=== PATIENT | female | born 1940 | race Caucasian/White ===

== ENCOUNTER → 2016-12-03 | Outpatient (CLI) | payer OTHER | LOC: CIMAGING 09:43 | DX: Z12.31 Encounter for screening mammogram for malignant neoplasm of breast (principal); Z80.3 Family history of malignant neoplasm of breast | CPT/HCPCS: G0202 ==

== ENCOUNTER 2016-12-14 09:15 | Inpatient (IN) | payer OTHER ==
--- NOTE | 2016-12-06 15:14 | GHP ---
[f rep st] PREOP HISTORY AND PHYSICAL DATE OF ADMISSION: 12/14/2016 She will be an a.m. admission for surgery on December 14, 2016. PROBLEM: Right hip arthritis. HISTORY OF PRESENT ILLNESS: The patient is a 76-year-old woman admitted for a right total hip arthr oplasty. She has had progressive pain in her right hip for the past couple of years. It started wi th groin pain. She has had rapid acceleration of her pain recently. She is having daily pain and n ight pain. Walking is painful. She is limping. Her activities are very limited. She has been usi ng Tylenol. She has trouble putting on her shoes and socks. She has not had any previous cortisone injections. PAST MEDICAL HISTORY: She is treated for elevated cholesterol. She is also treated for hypothyroid ism. She has had recent endoscopy and had some stomach acid erosions. She has had a previous open heart surgery for mitral valve and tricuspid valve reconstructions. No history of DVT, hepatitis, o r sleep apnea. CURRENT MEDICATIONS: Atorvastatin 10 mg per day, levothyroxine 50 mcg per day, metoprolol 25 mg per day, Prilosec daily, one baby aspirin per day. ALLERGIES: Drug allergies: None. Metal allergy: None. Latex allergy: None. SOCIAL HISTORY: The patient does not smoke cigarettes or drink alcohol. She is retired. She is ma rried. FAMILY HISTORY: Positive for high blood pressure and cancer. PHYSICAL EXAMINATION: GENERAL: She is an alert, healthy-appearing woman. VITAL SIGNS: Height 5 f eet 6 inches. Weight 160 pounds. BMI 25.8. HEENT: Eyes, conjunctivae and sclerae are clear. Pup ils are round and reactive. Mouth, good oral hygiene. No loose teeth. CHEST: Clear. HEART: Reg ular rhythm. No murmurs. EXTREMITIES: Pertinent findings are limited to her right hip. She has f ull hip extension, 100 degrees of flexion. External rotation 20 degrees. Internal rotation 0 degre es. Abduction 30 degrees. She has pain at the extremes of motion. IMAGING: Films from November 08, 2016, show severe degenerative arthritis of the right hip. She is [id number]. Peripheral osteophytes are present. She has mild cartilage space narrowing in her l eft hip. IMPRESSION ON ADMISSION: 1. Right hip advanced degenerative arthritis. She is prepared for a right total hip arthroplasty. 2. Treatment for elevated cholesterol. 3. Treatment for hypothyroidism. 4. Treatment for stomach acid problems. 5. Status post open heart surgery for mitral and tricuspid valve reconstruction. She will undergo a right total hip arthroplasty. The surgery has been described to her including th e risks, complications, expectations, and recovery time. I have discussed with her the risk of disl ocation, leg length inequality, infection, and sciatic nerve injury. All her questions have been an swered, and she consents to surgery. /[id number]/MODL
[2016-12-06 15:35] LABS: % IMMATURE GRANULYOCYTES 0.1 % (0.0-1.1); ABSOLUTE IMMATURE GRANULOCYTES 0.01 10^3/uL (0.00-0.10); ADD DIFF? NO; ADD MORPH? NO; ADD SCAN? NO; ATYPICAL LYMPHOCYTE FLAG 10 (0-99); FRAGMENT RBC FLAG 0 (0-99); HEMATOCRIT 39.8 % (38.0-47.0); HEMOGLOBIN 13.1 g/dL (12.6-16.3); LEFT SHIFT FLG 0 (0-99); LIPEMIA HEMOLYSIS FLAG 80 (0-99); MEAN CELL HEMOGLOBIN 30.6 pg (27.9-34.1); MEAN CELL HEMOGLOBIN CONCENTR. 32.9 g/dL (32.4-36.7); MEAN PLATELET VOLUME 9.5 fL (8.7-11.7); PLATELET CLUMPS FLAG 0 (0-99); PLATELET COUNT 274 10^3/uL (150-400); RED BLOOD CELL COUNT 4.28 10^6/uL (4.18-5.33); RED CELL DISTRIBUTION WIDTH 13.1 % (11.5-15.2)
[~2016-12-14 09:15] MED LIST: ACETAMINOPHEN 325 MG TAB PO ONE; CEFAZOLIN 2 GM/DEXTR 100 ML IV ONE; CHLORHEXIDINE GLUC HIBICLENS 118 ML BTL TP ONE; DEXAMETHASONE 4 MG/ML VIAL IVP ONE; FAMOTIDINE 20 MG TAB PO ONE; POVIDONE-IODINE 20 ML in SODIUM CL IRRIG SOLUTION 500 ML IRR ONE; ROPI/epiNEPH/KETOROLAC JOINT COCKTAIL IU ONE; SKIN ADHESIVE (DERMABOND) 1 EACH TP ONE; TRANEXAMIC ACID 1,400 MG in NS 100 ML IV ONE; ceFAZolin 1 GM/5 ML SYR ONE
[2016-12-14] MEDS ORDERED: FAMOTIDINE 20 MG TAB ONE (10:17)
[2016-12-14] MEDS ORDERED: DEXAMETHASONE 4 MG/ML VIAL ONE (10:17)
[2016-12-14] MEDS ORDERED: CEFAZOLIN 2 GM/DEXTROSE/100 ML BAG IV ONE (10:18)
[2016-12-14] MEDS ORDERED: ACETAMINOPHEN 325 MG TAB ONE (10:18)
[2016-12-14] MEDS ORDERED: LR 1,000 ML IV ONE (10:49)
[2016-12-14] MEDS ORDERED: MIDAZOLAM 2 MG/2 ML VIAL ONE (12:50)
[2016-12-14] MEDS ORDERED: PROPOFOL/EMULSION 500 MG/50 ML BOTTLE IV ONE ×3 (12:56→16:36)
[2016-12-14] MEDS ORDERED: epHEDrine SULFATE 10 MG/ML SYR ONE ×2 (14:11→16:01)
--- NOTE | 2016-12-14 14:44 | POSTOPPROG ---
Post Op Note Date of Operation: 12/14/16 Surgeon: Virgilio Juarez Supervisor Coffee: Lenka Anesthesiologist: Scarlett Anesthesia: IV Sedation, Spinal Post-op Diagnosis: R hip arthritis Procedure: R JORDAN Inf/Abcess present in the surg proc area at time of surgery?: No EBL: 100-500
[2016-12-14] MEDS ORDERED: PROMETHAZINE HCL 25 MG SUPPR PR PRN (14:53)
[2016-12-14] MEDS ORDERED: ONDANSETRON DISINTEGRATING 4 MG TAB PO PRN (14:53)
[2016-12-14] MEDS ORDERED: BISACODYL 10 MG SUPP PR PRN (14:53)
[2016-12-14] MEDS ORDERED: METOCLOPRAMIDE 10 MG/2 ML VIAL IVP PRN (14:53)
[2016-12-14] MEDS ORDERED: NS 500 ML IV PRN (14:53)
[2016-12-14] MEDS ORDERED: MAGNESIUM HYDROXIDE 30 ML UDCUP PO PRN (14:53)
[2016-12-14] MEDS ORDERED: DIPHENOXYLATE/ATROPINE LOMOTIL 1 TAB PO PRN (14:53)
[2016-12-14] MEDS ORDERED: oxyCODONE IR 5 MG TAB PO PRN (14:53)
[2016-12-14] MEDS ORDERED: PHARMACY PAIN CONSULT 1 EA MISC PRN (14:53)
[2016-12-14] MEDS ORDERED: diphenhydrAMINE 25 MG CAP PO PRN (14:53)
[2016-12-14] MEDS ORDERED: POLYETHYLENE GLYCOL 3350 17 GM PKT PO PRN (14:53)
[2016-12-14] MEDS ORDERED: KETOROLAC 30 MG/1 ML SDV IVP PRN (14:53)
[2016-12-14] MEDS ORDERED: ONDANSETRON 4 MG/2 ML VIAL IVP PRN (14:53)
[2016-12-14] MEDS ORDERED: LACTULOSE 20 GM/30 ML UDCUP PO PRN (14:53)
[2016-12-14] MEDS ORDERED: traMADol 50 MG TAB PO PRN (14:53)
[2016-12-14] MEDS ORDERED: TEMAZEPAM 15 MG CAP PO PRN (14:53)
[2016-12-14] MEDS ORDERED: CYCLOBENZAPRINE 10 MG TAB PO PRN (14:53)
[2016-12-14] MEDS ORDERED: LR 1,000 ML IV SCH (15:00)
--- NOTE | 2016-12-14 15:48 | GOP ---
[f rep st] OPERATIVE REPORT DATE OF OPERATION: 12/14/2016 SURGEON: Virgilio Juarez MD SUBWAREHOUSE SUPERVISOR: 1. Peter Daley, PAC. 2. Trell Joshua CFA. ANESTHESIA: Combination of Marcaine spinal and IV sedation by Dr. Rajesh Pantoja. PREOPERATIVE DIAGNOSIS: Right hip severe degenerative arthritis. POSTOPERATIVE DIAGNOSIS: Right hip severe degenerative arthritis. PROCEDURE PERFORMED: A right total hip arthroplasty, ceramic femoral head on highly cross-linked po lyethylene cup liner. FINDINGS: DESCRIPTION OF PROCEDURE: The patient was given 2 g of IV Ancef preoperatively within 60 minutes of surgery. She also received IV tranexamic acid at a dose of 20 mg/kg. She was placed on the operat ing room table and given spinal anesthesia with Marcaine by Dr. Pantoja. She was then placed supine a nd given IV sedation. A Espinoza catheter was not used. She wore a SHAE stocking and an SCD on the non operative leg. She was rolled to the right lateral decubitus position. The position was secured wi th the pegboard table attachment. An axillary roll was used, and all pressure points were carefully padded. I was careful to lock her pelvis in a rigid vertical position. Her perineum was isolated with plastic adhesive drapes. Her right hip and right lower extremity were prepped with ChloraPrep. They were draped free using sterile sheets, stockinette, and Ioban plastic drapes. The [facility] th Organization time-out was performed to verify the correct surgical side and the correct patient i dentity. The [place] time-out was also performed. I made a 4 to 5-inch straight oblique posterolateral hip skin incision. I was using the modified sterior superior approach. I made my incision a little more proximal than typical. The subcutaneou s tissues were sharply divided and hemostasis was obtained using electrocautery. The fascia of the gluteus stephanie was split. I split a short section of the proximal fascia riley. The gluteus maximu s muscle fibers were split in line with their orientation. A Charnley self-retaining retractor was inserted. Her sciatic nerve was located, partially exposed and protected throughout the procedure. I left the piriformis intact. The other external rotators down to the quadratus were divided at th e base of the femoral neck, tagged and reflected posteriorly. The quadratus was left intact. The p osterior hip capsule was divided as a separate layer at the base of the femoral neck, tagged, and re flected posteriorly. A smooth 1/8-inch Steinmann pin was inserted vertically into the ilium, superi or to the acetabulum. A 1/8-inch drill bit was inserted vertically into the greater trochanter and parallel to the first pin. The distance between the 2 was measured for leg length reference. The f emoral head was dislocated posteriorly. Severe degenerative changes were present on the femoral hea d. Her femoral neck was osteotomized at the appropriate level and inclination. I was careful to preserve all the posterior capsule and most of the anterior capsule. The remnant o f the damaged labrum was excised. The femur was prepared first. This allowed me to care clinician the amount of natural femoral neck anteversi on. This, in turn, allowed me to later determine the correct amount of cup anteversion. She had ap proximately 10-12 degrees of natural femoral neck anteversion. The canal was opened laterally with a box chisel. I reamed and broached sequentially up to a size 10. I used a size 10 broach as a tri al stem. I was careful to lateralize adequately. Appropriate retractors were inserted to expose the acetabulum. The acetabulum was reamed sequential ly up to 53 mm. I selected a 54 mm [facility] Tritanium cluster hole hemispherical shell. This was ta pped securely into place in the proper degree of inclination and anteversion. I used the transverse acetabular ligament and other acetabular bony landmarks to help me properly orient the cup. I inse rted a 30 mm and a 25 mm screw through the shell into the ilium superiorly. I also inserted a screw in metal dome hole plug. Anterior and anterior inferior osteophytes were removed with an osteotome and rongeur. I performed a series of trial reductions to determine the correct length and stability. I concluded that the size 10 stem with a 36 mm head and a flush liner gave me the proper combination of appropr iate length and good anterior and posterior stability. The flush Elena X3 highly cross-linked polyethylene liner was inserted and tapped securely into pl norberto. I chose the Elena Secur-Fit Max stem in a size 10 with standard offset. This was inserted t o press-fit and was very tight. I recognized that I was leaving it about 3 mm proud. I did one fin al trial reduction and selected the -5 mm neck length with a 36 mm head. This gave me a few millime ters of lengthening. She was short preoperatively, and I was intentionally lengthening her a small amount. I selected the Elena Biolox Delta ceramic head with an outside diameter of 36 mm and a ne ck length of -5 mm. The head was tapped securely onto the clean trunnion. The acetabulum was irrig ated and cleaned and the hip was reduced one final time. She had excellent anterior and posterior s tability. 40 mL of the joint anesthetic cocktail was injected into the capsule, the deep musculature and the s ubcutaneous tissues along the skin edges. The joint was thoroughly irrigated one final time with a dilute Betadine solution. Her sciatic nerve was reinspected and looked unharmed. The divided exter nal rotators and the posterior hip capsule were repaired in separate layers with #2 FiberWire suture s through drill holes in the greater trochanter. This provided a strong posterior capsular and exte rnal rotator repair. Her piriformis tendon was still intact. The fascia riley was closed first with a couple of interrupted [id number] #2 FiberWire sutures followed by a running #2 barbed Ethico n Stratafix PDO suture. Subcutaneous tissues were closed with a running 0 barbed Ethicon Stratafix Monoderm suture. The skin was closed with a running 3-0 barbed Ethicon Stratafix Monoderm subcuticu lar suture. The skin edges were reapproximated and sealed with Dermabond glue. The wound was cover ed with a strip of Telfa, and everything was held in place with a piece of clear plastic Tegaderm. A long-leg SHAE stocking and SCD were applied to the right lower extremity. She wore a stocking and SCD on the opposite leg during the procedure. An abduction pillow was placed between her knees. Alejandro resendiz was awakened from anesthesia and rolled to the supine position on her [facility]. She was ta jose armando to PACU in satisfactory condition. There were no recognized intraoperative complications. The estimated blood loss was about 300 mL. I used a Elena Tritanium hemispherical cluster hole shell with an outside diameter of 54 mm. I in serted 30 and a 25 mm supplemental fixation screws. The liner was a Elena X3 flush highly cross-l inked liner with an inside diameter of 36 mm. The femoral component was a press-fit [facility] standar d offset Secur-Fit Max stem in a size 10. Her femoral head was a Elena Biolox Delta ceramic head with a -5 mm neck length and a 36 mm outside diameter. Devyn Daley and Trell Joshua acted as surgical assistants. Their assistance was a medical angeli dias. /[id number]/MODL
[2016-12-14] MEDS ORDERED: PHENYLEPHRINE HCL 100 MCG/ML SYR ONE (16:13)
[2016-12-14] MEDS: CALCIUM CARBONATE 500 MG CHEWABLE TAB PO SCH ×2 (17:51→20:19)
[2016-12-14] MEDS: ACETAMINOPHEN 325 MG TAB PO SCH ×2 (17:51→23:52)
[2016-12-14] MEDS ORDERED: TRANEXAMIC ACID 650 MG TAB PO SCH (20:00)
[2016-12-14] MEDS: METOPROLOL TARTRATE 25 MG TAB PO SCH (20:18)
[2016-12-14] MEDS: FERROUS SULFATE 325 MG TAB PO SCH (20:19)
[2016-12-14] MEDS: SENNOSIDES/DOCUSATE SODIUM TAB PO SCH (20:19)
[2016-12-14] MEDS: FAMOTIDINE 20 MG TAB PO SCH (20:19)
[2016-12-14] MEDS: ASPIRIN 325 MG TAB PO SCH (20:20)
[2016-12-14] MEDS: TRANEXAMIC ACID 650 MG TAB PO SCH (20:20)
[2016-12-14] MEDS ORDERED: ATORVASTATIN CALCIUM 10 MG TAB PO SCH (21:00)
[2016-12-14] MEDS ORDERED: ALPRAZolam 0.5 MG TAB PO SCH (21:00)
[2016-12-14] MEDS: ceFAZolin 2 GM/DEXTROSE 100 ML IV SCH (21:10)
[2016-12-15] MEDS: TRANEXAMIC ACID 650 MG TAB PO SCH (03:18)
[2016-12-15 04:37] VITALS: RESP 16
[2016-12-15 05:12] LABS: HEMATOCRIT 27.8 % (38.0-47.0); HEMOGLOBIN 9.7 g/dL (12.6-16.3)
[2016-12-15] MEDS: ACETAMINOPHEN 325 MG TAB PO SCH (05:19)
[2016-12-15] MEDS: ceFAZolin 2 GM/DEXTROSE 100 ML IV SCH (05:19)
[2016-12-15] MEDS ORDERED: LEVOTHYROXINE 50 MCG TAB PO SCH (06:00)
[2016-12-15 07:23] VITALS: TEMP 97.3; O2SAT 94
[2016-12-15] MEDS: SENNOSIDES/DOCUSATE SODIUM TAB PO SCH (08:48)
[2016-12-15] MEDS: METOPROLOL TARTRATE 25 MG TAB PO SCH (08:48)
[2016-12-15] MEDS: FAMOTIDINE 20 MG TAB PO SCH (08:48)
[2016-12-15] MEDS: FERROUS SULFATE 325 MG TAB PO SCH (08:49)
[2016-12-15] MEDS: ASPIRIN 325 MG TAB PO SCH (08:49)
[2016-12-15] MEDS: CALCIUM CARBONATE 500 MG CHEWABLE TAB PO SCH (08:49)
[2016-12-15 08:55] VITALS: BP 118/60; PULSE 65
[2016-12-15] MEDS ORDERED: MULTIVITAMINS 1 EACH TAB PO SCH (09:00)
[2016-12-15] MEDS ORDERED: NON-FORMULARY NEW DRUG (Omeprazole [Prilosec 20 Mg] 20 MG) PO SCH (09:00)
[2016-12-15] MEDS ORDERED: PANTOPRAZOLE SODIUM 40 MG TAB PO SCH (09:00)
--- NOTE | 2016-12-15 09:31 | SOAPPROG ---
SOAP Progress Note Assessment/Plan: Assessment: Afebrile. Mild pain. Up and walking in room. Dsg is dry. Sciatic nerve intact. H/H is low but acceptable. Films look good. Plan:Continue PT today. Home later today. 12/15/16 09:30 Objective: Vital Signs Temp Pulse Resp BP Pulse Ox 36.3 C 65 16 118/60 94 12/15/16 07:22 12/15/16 08:48 12/15/16 07:22 12/15/16 08:48 12/15/16 07:22 Laboratory Results 12/15/16 04:26 12/14/16 12/15/16 12/16/16 05:59 05:59 05:59 Intake Total 3655 500 Output Total 1900 600 Balance 1755 -100 ICD10 Worksheet Patient Problems: Problems Problem Status Onset Osteoarthritis of right hip Acute Congestive cardiac failure Acute Hyponatremia Acute Hypotension Acute Mitral regurgitation, acute Acute Paroxysmal a-fib Acute Postoperative anemia due to acute blood loss Acute S/P ablation of atrial fibrillation Acute S/P mitral valve repair Acute Secondary tricuspid valve regurgitation Acute Status post tricuspid valve repair Acute Dyslipidemia Chronic Hypothyroidism Chronic
--- NOTE | 2016-12-15 10:11 | GDS ---
[f rep st] DISCHARGE SUMMARY ADMISSION DIAGNOSIS: Right hip severe degenerative arthritis. DISCHARGE DIAGNOSIS: Right hip severe degenerative arthritis. OPERATION PERFORMED: 12/14/2016, a right total hip arthroplasty, ceramic femoral head on highly rolled glass crosscutter ss-linked polyethylene cup liner. POSTOPERATIVE COMPLICATIONS: None. CONDITION ON DISCHARGE: Improved. DESCRIPTION OF HOSPITAL COURSE: The patient was admitted to the hospital on the morning of surgery. Her admission CBC was normal. The same day under a combination of Marcaine spinal anesthesia and IV sedation she underwent a right total hip arthroplasty. Postoperatively, she was treated with mul timodal DVT prophylaxis including aspirin. On the first postoperative day, her hemoglobin and hemat ocrit were 9.7 and 27.8. She did not require any transfused blood. She was seen by Physical Therap y and made good progress with ambulation and stairs. By the time of discharge, she was afebrile and her wound was clean and dry. DISPOSITION: Patient discharged to her home. She will go to outpatient physical therapy. She may progress to full weightbearing on the right as tolerated. Continue aspirin 325 mg p.o. daily for 21 days. Use SHAE stockings for 1 week. Use an abduction pillow in bed for 3 weeks. I will see her nathanael heath in the office on 01/03/2017. If there are any problems, she is to call me at the office. /[id number]/MODL
== END 2016-12-15 11:02 | disposition home or self-care (01) | DRG 470 ==
LOC: F3N 09:59
PROVIDERS: ADMIT Orthopaedic Surgery; ATTEND Orthopaedic Surgery
PROC: 0SR904Z Replacement of Right Hip Joint with Ceramic on Polyethylene Synthetic Substitute, Open Approach (ICD-10-PCS; principal; 2016-12-14 11:45)
DX: M16.11 Unilateral primary osteoarthritis, right hip (principal); E78.00 Pure hypercholesterolemia, unspecified; E03.9 Hypothyroidism, unspecified; K30 Functional dyspepsia
CPT/HCPCS: 97116-GP; 97161-GP; 97165-GO; C1713; G8978-GP-CI; G8979-GP-CI; G8980-GP-CI; G8987-GO-CI; G8988-GO-CI; G8989-GO-CI; J0171; J0690; J1100; J1885; J2250; J2370; J2704; J2795

== ENCOUNTER → 2017-12-14 | Outpatient (CLI) | payer OTHER | LOC: FIMAGING 09:17 | PROVIDERS: ATTEND Physician Assistant | DX: K56.699 Other intestinal obstruction unspecified as to partial versus complete obstruction (principal) ==

== ENCOUNTER → 2017-12-15 | Outpatient (CLI) | payer OTHER | LOC: FIMAGING 08:07 | PROVIDERS: ATTEND Physician Assistant | DX: R14.2 Eructation (principal) | CPT/HCPCS: 78264; A9541 ==

== ENCOUNTER → 2018-01-05 | Outpatient (CLI) | payer OTHER ==
[~2018-01-05] MED LIST changes: -ACETAMINOPHEN 325 MG TAB PO ONE; -CEFAZOLIN 2 GM/DEXTR 100 ML IV ONE; -CHLORHEXIDINE GLUC HIBICLENS 118 ML BTL TP ONE; -DEXAMETHASONE 4 MG/ML VIAL IVP ONE; -FAMOTIDINE 20 MG TAB PO ONE; +IOPAMIDOL (ISOVUE-300) 100 ML BTL ONE; -POVIDONE-IODINE 20 ML in SODIUM CL IRRIG SOLUTION 500 ML IRR ONE; -ROPI/epiNEPH/KETOROLAC JOINT COCKTAIL IU ONE; -SKIN ADHESIVE (DERMABOND) 1 EACH TP ONE; -TRANEXAMIC ACID 1,400 MG in NS 100 ML IV ONE; -ceFAZolin 1 GM/5 ML SYR ONE
== END ==
LOC: FIMAGING 09:42
PROVIDERS: ATTEND Physician Assistant
DX: K63.89 Other specified diseases of intestine (principal); K59.00 Constipation, unspecified
CPT/HCPCS: 74177; Q9967

== ENCOUNTER → 2018-01-06 | Outpatient (CLI) | payer OTHER | LOC: FIMAGING 08:25 | PROVIDERS: ATTEND Internal Medicine | DX: Z12.31 Encounter for screening mammogram for malignant neoplasm of breast (principal); Z13.820 Encounter for screening for osteoporosis; M81.0 Age-related osteoporosis without current pathological fracture; Z80.3 Family history of malignant neoplasm of breast ==

== ENCOUNTER 2018-01-15 23:06 | Emergency (ER) | payer OTHER ==
--- NOTE | 2018-01-15 23:24 | EDPHY ---
H & P Stated Complaint: c/o mid chest pressure since approx 1999 Time Seen by Provider: 01/15/18 23:24 HPI/ROS: HPI CHIEF COMPLAINT: Bloating, burping comma chest discomfort HISTORY OF PRESENT ILLNESS: Patient is a 77-year-old female she presents emergency room with frequent burping and indigestion. She reports to me she has extensive burping. Stated around 8pm this eveing or 3+ ago. She contributes this all to her Crohn's disease and indigestion. Patient reports to me that she has had a mitral valve repair, as well as tricuspid valve repair , recently diagnosed with abdominal strcitures and Crohn's disease, remote history of AFib status post ablation when she had her valve repaired, she decided come the emergency room tonight due to chest discomfort/frequent burping /gas. Describes it as a indigestion type of discomfort and frequent burping. Denies Pleuritic pain, denies fever, or Dull ache in her chest. Feels very gasy and frequent burps. Past Medical History: Crohn's disease recently diagnosed, abdominal strictures , history of AFib Past Surgical History: Mitral valve repair, tricuspid valve repair Social History: Denies daily use drugs alcohol tobacco. Family History: Noncontributory ROS REVIEW OF SYSTEMS: A comprehensive 10 point review of systems is otherwise negative aside from elements mentioned in the history of present illness. Exam Constitutional triage nursing summary reviewed, vital signs reviewed, awake/ alert. Eyes normal conjunctivae and sclera, EOMI, PERRLA. HENT normal inspection, atraumatic, moist mucus membranes, no epistaxis, neck supple/ no meningismus, no raccoon eyes. Respiratory clear to auscultation bilaterally, normal breath sounds, no respiratory distress, no wheezing. Cardiovascular rate normal, regular rhythm, no murmur, no edema, distal pulses normal. Gastrointestinal soft, non-tender, no rebound, no guarding, normal bowel sounds, no distension, no pulsatile mass. Genitourinary no CVA tenderness. Musculoskeletal no midline vertebral tenderness, full range of motion, no calf swelling, no tenderness of extremities, no meningismus, good pulses, neurovascularly intact. Skin pink, warm, & dry, no rash, skin atraumatic. Neurologic awake, alert and oriented x 3, AAOx3, moves all 4 extremities equally, motor intact, sensory intact, CN II-XII intact, normal cerebellar, normal vision, normal speech. Psychiatric normal mood/affect. Heme/Lymph/Immune no lymphadenopathy. Differential diagnosis includes but is not limited to: ACS, atypical chest pain , pneumothorax, pneumonia, pulmonary embolism, aortic dissection, congestive heart failure, tumor, musculoskeletal pain, esophageal pain, GERD, peptic ulcer disease, pancreatitis Medical Decision Making: Plan for this patient IV establishment with obtain blood work, EKG, chest x-ray, troponin, will give a dose of IV Pepcid, IV Valium to see if this improves her discomfort. Re-evaluation: EKG interpretation by me on record in [employer] system. Impression time of EKG 2328, sinus rhythm rate of [address] elevation no ST depression no significant T-wave abnormalities. When compared to old EKG dated 06/27/2015 very similar. 0301: Patient has been re-evaluate this time she does feel slightly better. However she is still belching and having burping episodes rather frequently. This is what causes her to have some discomfort. While was in the room she belched multiple times. She states this gives her some indigestion and some burping. She has received a GI cocktail, IV Pepcid, IV nausea medicine, IV fluids, IV Valium she does not have hiccups but continues to have indigestion burping. She denies any significant chest pain. Her workup for indigestion or pressure in her chest with burping so far has been unremarkable she has a nonischemic EKG. Normal troponin. And blood work that is reassuring. The bowel gas pattern seen on her chest x-ray and KUB is unremarkable. No evidence of obstruction no air-fluid levels. Plan will be for 10 mg IV Reglan and Benadryl to see if this improves her belching. Will repeat her EKG and troponin at 4:00 a.m. As well. I think acute coronary syndrome or ACS is on likely in the setting given significant belching and burping in the room. CT angiogram of the chest negative for pulmonary embolism or aortic dissection called to me by Dr. Harvey. Repeat EKG: Repeat EKG time: 3:40 a.m., sinus rhythm rate of 68 T-wave abnormality V1 V2. Otherwise no ST elevation or ST depression no significant ST elevation or significant T-wave abnormalities. This EKG appears very similar to previous EKG and old EKG. 0442AM; patient had a 2nd troponin in resulted negative. 0442: Re-evaluated this time: She is resting comfortably she feels much better after IV Reglan. She denies any chest pain or shortness of breath. Denies burping or indigestion or nausea. She is requesting adamantly to be discharged. I will prescribe her a small dose of Reglan. She understands return to the emergency room she develops worsening symptoms abdominal pain fever vomiting. Also follow up with GI. She states the right gland probably made the biggest improvement. Understands regland can make you feel itching/crawl out of skin, if this happens take benadryl she understands. Source: Patient - Medical/Surgical History Hx Asthma: No Hx Chronic Respiratory Disease: No Hx Diabetes: No Hx Cardiac Disease: Yes Hx Renal Disease: No Hx Cirrhosis: No Hx Alcoholism: No Hx HIV/AIDS: No Hx Splenectomy or Spleen Trauma: No Other PMH: PACs,PVCS, SVT, HYPERLIPIDEMIA, crohns disease, hypertension,HYST, APPY, R hip replacement, RESTLESS LEG SYNDROME - Social History Smoking Status: Never smoked Constitutional: Initial Vital Signs Heart Rate 80 01/15/18 23:10 Respiratory Rate 20 01/15/18 23:10 Blood Pressure 165/98 H 01/15/18 23:10 O2 Sat (%) 99 01/15/18 23:10 O2 Delivery Mode Room Air Allergies/Adverse Reactions: No Known Allergies Allergy (Verified 01/15/18 23:14) Home Medications: Medication Instructions Recorded ALPRAZolam [Xanax 0.5 MG (*)] 0.5 mg PO HS 06/26/15 Atorvastatin Calcium [Lipitor 10 10 mg PO Q2D@21 06/26/15 mg (*)] Levothyroxine [Synthroid 50 mcg 50 mcg PO DAILY06 06/26/15 (*)] Ferrous Sulfate [Ferrous Sulf 325 325 mg PO BID #30 tab 07/15/15 MG (*)] Calcium Carbonate [Tums 500MG (*)] 500 mg PO TID 11/19/16 Metoprolol Tartrate [Lopressor 25 12.5 mg PO BID 11/19/16 mg (*)] Multivitamins [Multivitamin (*)] 1 each PO DAILY 11/19/16 Omeprazole [Prilosec 20 mg] 20 mg PO DAILY 11/23/16 Acetaminophen [Tylenol 325mg (*)] 650 mg PO Q6HRS #0 tab 12/15/16 Aspirin 81mg (*) 01/15/18 Metoclopramide [Reglan 10 mg tab 10 mg PO ACHS #14 tab 01/16/18 (*)] Ranitidine HCl [Zantac] 150 mg PO DAILY #30 tablet 01/16/18 Medical Decision Making - Data Points Laboratory Results: Laboratory Results 01/15/18 23:20 01/15/18 23:20 01/16/18 01/15/18 01/15/18 03:40 23:20 23:20 WBC RBC Hgb Hct MCV MCH MCHC RDW Plt Count MPV Neut % (Auto) Lymph % (Auto) [place] % (Auto) Eos % (Auto) Baso % (Auto) Nucleat RBC Rel Count Absolute Neuts (auto) Absolute Lymphs (auto) Absolute Monos (auto) Absolute Eos (auto) Absolute Basos (auto) Absolute Nucleated RBC Immature Gran % Immature Gran # PT 13.2 SEC SEC (12.0-15.0) INR 0.98 (0.83-1.16) APTT 27.3 SEC SEC (23.0-38.0) Sodium 143 mEq/L mEq/L (135-145) Potassium 3.6 mEq/L mEq/L (3.5-5.2) Chloride 102 mEq/L mEq/L (97-110) Carbon Dioxide 26 mEq/l mEq/l (22-31) Anion Gap 15 mEq/L mEq/L (8-16) BUN 12 mg/dL mg/dL (7-23) Creatinine 0.8 mg/dL mg/dL (0.6-1.0) Estimated GFR > 60 Glucose 97 mg/dL mg/dL (70-100) Calcium 10.2 mg/dL mg/dL (8.5-10.4) Magnesium 2.1 mg/dL mg/dL (1.6-2.3) Total Bilirubin 0.6 mg/dL mg/dL (0.1-1.4) Conjugated Bilirubin 0.2 mg/dL mg/dL (0.0-0.5) Unconjugated Bilirubin 0.4 mg/dL mg/dL (0.0-1.1) AST 26 IU/L IU/L (14-46) ALT 32 IU/L IU/L (9-52) Alkaline Phosphatase 94 IU/L IU/L (38-126) Creatine Kinase 59 IU/L IU/L (0-156) CK-MB (CK-2) Fraction 1.06 ng/mL ng/mL (0.00-3.19) Troponin I < 0.012 ng/mL ng/mL < 0.012 ng/mL ng/mL (0.000-0.034) (0.000-0.034) NT-Pro-B Natriuret Pep 263 pg/mL pg/mL (0-450) Total Protein 7.9 g/dL g/dL (6.3-8.2) Albumin 4.8 g/dL g/dL (3.5-5.0) Lipase 212 IU/L IU/L (23-300) 01/15/18 23:20 WBC 7.30 10^3/uL 10^3/uL (3.80-9.50) RBC 4.40 10^6/uL 10^6/uL (4.18-5.33) Hgb 13.5 g/dL g/dL (12.6-16.3) Hct 40.0 % % (38.0-47.0) MCV 90.9 fL fL (81.5-99.8) MCH 30.7 pg pg (27.9-34.1) MCHC 33.8 g/dL g/dL (32.4-36.7) RDW 12.7 % % (11.5-15.2) Plt Count 272 10^3/uL 10^3/uL (150-400) MPV 9.7 fL fL (8.7-11.7) Neut % (Auto) 47.0 % % (39.3-74.2) Lymph % (Auto) 40.5 % % (15.0-45.0) [place] % (Auto) 9.3 % % (4.5-13.0) Eos % (Auto) 2.3 % % (0.6-7.6) Baso % (Auto) 0.8 % % (0.3-1.7) Nucleat RBC Rel Count 0.0 % % (0.0-0.2) Absolute Neuts (auto) 3.42 10^3/uL 10^3/uL (1.70-6.50) Absolute Lymphs (auto) 2.96 10^3/uL 10^3/uL (1.00-3.00) Absolute Monos (auto) 0.68 10^3/uL 10^3/uL (0.30-0.80) Absolute Eos (auto) 0.17 10^3/uL 10^3/uL (0.03-0.40) Absolute Basos (auto) 0.06 10^3/uL 10^3/uL (0.02-0.10) Absolute Nucleated RBC 0.00 10^3/uL 10^3/uL (0-0.01) Immature Gran % 0.1 % % (0.0-1.1) Immature Gran # 0.01 10^3/uL 10^3/uL (0.00-0.10) PT INR APTT Sodium Potassium Chloride Carbon Dioxide Anion Gap BUN Creatinine Estimated GFR Glucose Calcium Magnesium Total Bilirubin Conjugated Bilirubin Unconjugated Bilirubin AST ALT Alkaline Phosphatase Creatine Kinase CK-MB (CK-2) Fraction Troponin I NT-Pro-B Natriuret Pep Total Protein Albumin Lipase Medications Given: Discontinued Medications Al Hydroxide/Mg Hydroxide (Maalox Susp) 30 ml PO ONCE ONE Stop: 01/16/18 01:16 Last Admin: 01/16/18 01:21 Dose: 30 ml Diazepam (Valium) 2.5 mg IVP EDNOW ONE Stop: 01/15/18 23:37 Last Admin: 01/15/18 23:47 Dose: 2.5 mg Diphenhydramine HCl (Benadryl Injection) 12.5 mg IVP EDNOW ONE Stop: 01/16/18 03:01 Last Admin: 01/16/18 03:07 Dose: 12.5 mg Famotidine (Pepcid) 20 mg IVP EDNOW ONE Stop: 01/15/18 23:37 Last Admin: 01/15/18 23:44 Dose: 20 mg Hyoscyamine Sulfate (Levsin, Hyomax-Sl) 0.25 mg PO ONCE ONE Stop: 01/16/18 01:16 Last Admin: 01/16/18 01:20 Dose: 0.25 mg Sodium Chloride (Ns) 1,000 mls @ 0 mls/hr IV ONCE ONE PRN Reason: Wide Open Stop: 01/15/18 23:38 Last Admin: 01/15/18 23:43 Dose: 1,000 mls Lidocaine (Lidocaine 2% Viscous) 15 ml PO ONCE ONE Stop: 01/16/18 01:16 Last Admin: 01/16/18 01:20 Dose: 15 ml Metoclopramide HCl (Reglan Injection) 10 mg IVP EDNOW ONE Stop: 01/16/18 03:01 Last Admin: 01/16/18 03:11 Dose: 10 mg Nitroglycerin (Nitrostat) 0.4 mg SL EDNOW ONE Stop: 01/16/18 00:51 Last Admin: 01/16/18 00:59 Dose: 0.4 mg Departure - Departure Disposition: Home, Routine, Self-Care Clinical Impression: Indigestion GERD (gastroesophageal reflux disease) Qualifiers: Esophagitis presence: with esophagitis Qualified Code(s): K21.0 - Gastro- esophageal reflux disease with esophagitis Condition: Good Instructions: Gastroesophageal Reflux Disease (ED), Metoclopramide (By mouth) Additional Instructions: 1. For follow up with her primary care doctor 2. Return emergency room if you have worsening symptoms includes nausea, chest pain, shortness of breath, vomiting 3. Reglan as prescribed also additionally take Zantac 4. Reglan can make you feel like her crawling out of her skin if you feel this take Benadryl. Referrals: Michelle Ashford MD [Primary Care Provider] - As per Instructions Prescriptions: Metoclopramide [Reglan 10 mg tab (*)] 10 mg PO ACHS #14 tab Ranitidine HCl [Zantac] 150 mg PO DAILY #30 tablet
--- NOTE | 2018-01-15 23:30 | CPEKG ---
Heart Rate: 87 RR Interval: 690 P-R Interval: 152 QRSD Interval: 86 QT Interval: 404 QTC Interval: 486 P Orange: 90 QRS Orange: 42 T Wave Orange: 27 EKG Severity - BORDERLINE ECG - EKG Impression: SINUS RHYTHM EKG Impression: ATRIAL PREMATURE COMPLEX EKG Impression: BORDERLINE PROLONGED QT INTERVAL Electronically Signed By: Michael Avilez 16-Jan-2018 07:18:38
[2018-01-15] MEDS ORDERED: DIAZEPAM 5 MG/ML 1 ML SYR IVP ONE (23:36)
[2018-01-15] MEDS ORDERED: FAMOTIDINE 20 MG/2 ML SDV IVP ONE (23:36)
[2018-01-15] MEDS ORDERED: NS 1,000 ML IV ONE (23:37)
[2018-01-15 23:49] LABS: PLATELET COUNT 272 10^3/uL (150-400)
[2018-01-15 23:58] LABS: INR 0.98 (0.83-1.16); PROTIME(PATIENT) 13.2 SEC (12.0-15.0)
[2018-01-16 00:03] LABS: CREATINE KINASE 59 IU/L (0-156)
[2018-01-16] MEDS ORDERED: NITROGLYCERIN 0.4 MG BTL SL ONE (00:50)
[2018-01-16] MEDS ORDERED: MAG HYDROX/AL HYDROX/SIMETH 30 ML UDCUP ONE (01:10)
[2018-01-16] MEDS ORDERED: LIDOCAINE 2% VISCOUS 15 ML UDCUP ONE (01:10)
[2018-01-16] MEDS ORDERED: HYOSCYAMINE SULFATE 0.125 MG TAB ONE (01:10)
[2018-01-16] MEDS ORDERED: HYOSCYAMINE SULFATE 0.125 MG TAB PO ONE (01:15)
[2018-01-16] MEDS ORDERED: LIDOCAINE 2% VISCOUS 15 ML UDCUP PO ONE (01:15)
[2018-01-16] MEDS ORDERED: MAG HYDROX/AL HYDROX/SIMETH 30 ML UDCUP PO ONE (01:15)
[2018-01-16] MEDS ORDERED: METOCLOPRAMIDE 10 MG/2 ML VIAL IVP ONE (03:00)
[2018-01-16] MEDS ORDERED: IOPAMIDOL (ISOVUE 370) 100 ML BTL IV ONE (03:09)
--- NOTE | 2018-01-16 03:42 | CPEKG ---
Heart Rate: 68 RR Interval: 882 P-R Interval: 160 QRSD Interval: 92 QT Interval: 436 QTC Interval: 464 P Jacob: 94 QRS Jacob: 32 T Wave Jacob: 55 EKG Severity - BORDERLINE ECG - EKG Impression: SINUS RHYTHM EKG Impression: ATRIAL PREMATURE COMPLEX EKG Impression: BORDERLINE T ABNORMALITIES, ANT-LAT LEADS Electronically Signed By: Michael Avilez 16-Jan-2018 07:18:38
[2018-01-16 04:23] VITALS: BP 126/76
== END 2018-01-16 04:56 | disposition home or self-care (01) ==
DX: K21.0 Gastro-esophageal reflux disease with esophagitis (principal); K30 Functional dyspepsia; I10 Essential (primary) hypertension; Z79.82 Long term (current) use of aspirin
CPT/HCPCS: 71045; 71275; 74018; 93005; 96361; 96374; 96375; 99285; J1200; J2765; J3360; Q9967

== ENCOUNTER → 2018-02-14 | Outpatient (CLI) | payer OTHER | LOC: FIMAGING 12:11 | PROVIDERS: ATTEND Internal Medicine Gastroenterology | DX: R93.3 Abnormal findings on diagnostic imaging of other parts of digestive tract (principal) ==

== ENCOUNTER 2018-02-28 14:21 | Inpatient (IN) | payer OTHER ==
[2018-02-28] MEDS ORDERED: cefOXitin SODIUM 2 GM in NS 100 ML IV ONE (14:37)
--- NOTE | 2018-02-28 14:46 | PDANEPAE ---
ANE History of Present Illness Small bowel resection laparoscopic vs open ANE Past Medical History - Cardiovascular History Hx Hypertension: Yes Hx Arrhythmias: Yes Hx Chest Pain: No Hx Coronary Artery / Peripheral Vascular Disease: Yes Hx CHF / Valvular Disease: Yes Hx Palpitations: No Cardiovascular History Comment: CAD. HTN. CHF. HYPERLIPIDEMIA. MITRAL VALVE REGURGITATION. tricuspid regurg - Pulmonary History Hx COPD: No Hx Asthma/Reactive Airway Disease: No Hx Recent Upper Respiratory Infection: No Hx Oxygen in Use at Home: No Hx Sleep Apnea: No Sleep Apnea Screening Result - Last Documented: Negative - Neurologic History Hx Cerebrovascular Accident: No Hx Seizures: No Hx Dementia: No - Endocrine History Hx Diabetes: No Endocrine History Comment: HYPOTHYROID - Renal History Hx Renal Disorders: No - Liver History Hx Hepatic Disorders: No Hepatic History Comment: CHOLECYSTECTOMY - Neurological & Psychiatric Hx Hx Neurological and Psychiatric Disorders: No Neurological / Psychiatric History Comment: situational ANXIETY - Cancer History Hx Cancer: No - Congenital Disorder History Hx Congenital Disorders: No - GI History Hx Gastrointestinal Disorders: Yes Gastrointestinal History Comment: IBS. CONSTIPATION. erosion on duodedum - Other Health History Other Health History: none - Chronic Pain History Chronic Pain: No - Surgical History Prior Surgeries: HYSTERECTOMY. CHOLECYSTECTOMY. TENDON left KNEE. APPENDECTOMY. repair of mitral and tricupsid valve 2015 adan 4maze ANE Review of Systems Review of systems is: negative Review of Systems: - Exercise capacity METS (RN): 4 METS ANE Patient History - Allergies Allergies/Adverse Reactions: No Known Allergies Allergy (Verified 01/15/18 23:14) - Home Medications Home medications: home medication list seen and reviewed Home Medications: ALPRAZolam [Xanax 0.5 MG (*)] 06/26/15 [Last Taken 12/13/16] Atorvastatin Calcium [Lipitor 10 mg (*)] 06/26/15 [Last Taken 12/13/16] Levothyroxine [Synthroid 50 mcg (*)] 06/26/15 [Last Taken 12/13/16] Metoprolol Tartrate [Lopressor 25 mg (*)] 11/19/16 [Last Taken 12/14/16] Multivitamins [Multivitamin (*)] 11/19/16 [Last Taken 1 Week Ago ~12/07/16] Aspirin 81mg (*) 01/15/18 [Last Taken Unknown] Acetaminophen [Tylenol 325mg (*)] 02/27/18 [Last Taken Unknown] Calcium Citrate 02/27/18 [Last Taken Unknown] Ferrous Sulfate [Ferrous Sulf 325 MG (*)] 02/27/18 [Last Taken Unknown] Fosamax 5mg 02/27/18 [Last Taken Unknown] - NPO status NPO Status: no food or drink >8 hours - Smoking Hx Smoking Status: Never smoked - Family Anes Hx Family Hx Anesthesia Complications: none ANE Labs/Vital Signs - Vital Signs Height: 167.64 cm Weight: 74.843 kg ANE Physical Exam - Airway Neck exam: decreased ROM Mallampati Score: Class 1 Mouth exam: normal dental/mouth exam - Pulmonary Pulmonary: no respiratory distress, clear to auscultation - Cardiovascular Cardiovascular: regular rate and rhythym, no murmur, rub, or gallop - ASA Status ASA Status: II ANE Anesthesia Plan Anesthesia Plan: general endotracheal anesthesia
[2018-02-28] MEDS ORDERED: MIDAZOLAM 2 MG/2 ML VIAL IVP ONE (14:49)
--- NOTE | 2018-02-28 15:17 | PDHPUP ---
History & Physical Update H&P update statement: This history and physical update is based on an assessment of the patient which was completed after admission or registration (within 24 hours), but prior to the surgery/procedure. H&P update: H&P reviewed & patient examined, no change in patient's condition since H&P completed
[2018-02-28] MEDS ORDERED: LR 1,000 ML IV ONE (15:38)
[2018-02-28] MEDS ORDERED: BUPIVACAINE 0.5% 30 ML SDV ONE (16:42)
[2018-02-28] MEDS ORDERED: fentaNYL 250 MCG/5 ML INJ ONE (16:56)
[2018-02-28] MEDS ORDERED: PROPOFOL 200 MG/20 ML VIAL ONE (16:56)
[2018-02-28] MEDS ORDERED: PROPOFOL/EMULSION 500 MG/50 ML BOTTLE IV ONE (16:57)
[2018-02-28] MEDS ORDERED: HEPARIN 1000 UNIT/1 ML MDV ONE (17:22)
[2018-02-28] MEDS ORDERED: ceFAZolin 1 GM/5 ML SYR ONE (17:23)
[2018-02-28] MEDS ORDERED: GLYCOPYRROLATE 0.2 MG/1 ML VIAL ONE (17:24)
[2018-02-28] MEDS ORDERED: DEXAMETHASONE 4 MG/ML VIAL ONE (17:24)
[2018-02-28] MEDS ORDERED: ONDANSETRON 4 MG/2 ML VIAL ONE (17:24)
[2018-02-28] MEDS ORDERED: SUGAMMADEX SODIUM 200 MG/2 ML VIAL IVP ONE (18:07)
--- NOTE | 2018-02-28 18:24 | POSTOPPROG ---
Post Op Note Date of Operation: 02/28/18 Surgeon: Carlos Ward Hand I Blocker: Cassidy Crouch Anesthesiologist: Nica Augustin Anesthesia: GET(General Endotracheal) Pre-op Diagnosis: ileal strictures Post-op Diagnosis: same Procedure: lap assisted small bowel resection Findings: thickened ileum c fat crawling, possible Crohn's, path pending Inf/Abcess present in the surg proc area at time of surgery?: No EBL: Minimal Complications: none Specimen(s): small bowel to pathology
[2018-02-28] MEDS ORDERED: ALPRAZolam 0.25 MG TAB PO PRN (18:26)
[2018-02-28] MEDS ORDERED: D5W 1/2 NS W/ 20 KCl/L 1,000 ML IV SCH (18:30)
[2018-02-28] MEDS ORDERED: HYDROmorphONE/DILAUDID 2 MG/ML INJ IVP PRN (18:36)
[2018-02-28] MEDS ORDERED: NALOXONE HCL 0.4 MG/ML INJ IVP PRN (18:36)
[2018-02-28] MEDS ORDERED: oxyCODONE IR 5 MG TAB PO PRN (18:36)
[2018-02-28] MEDS ORDERED: ACETAMINOPHEN 500 MG TAB PO PRN (18:36)
[2018-02-28] MEDS ORDERED: ONDANSETRON 4 MG/2 ML VIAL IVP PRN (18:36)
[2018-02-28] MEDS ORDERED: fentaNYL 100 MCG/2 ML INJ IVP PRN (18:36)
[2018-02-28] MEDS ORDERED: fentaNYL 100 MCG/2 ML INJ ONE (19:04)
[2018-02-28] MEDS: DOCUSATE SODIUM 100 MG CAP PO SCH (21:24)
[2018-02-28] MEDS: HYDROmorphONE/DILAUDID 1 MG/ML INJ IVP PRN (21:24)
[2018-03-01] MEDS: HYDROmorphONE/DILAUDID 1 MG/ML INJ IVP PRN ×2 (03:31→07:35)
[2018-03-01] MEDS: DOCUSATE SODIUM 100 MG CAP PO SCH ×2 (08:56→20:30)
[2018-03-01] MEDS: ENOXAPARIN 40 MG/0.4 ML SYR SC SCH (08:57)
--- NOTE | 2018-03-01 08:59 | SOAPPROG ---
SOAP Progress Note Assessment/Plan: Assessment: 77 y/o F s/p lap small bowel resection for ileal strictures POD#1 S: Sitting up in bed drinking coffee and eating jello. Started clears this am and tolerating well so far. Denies passing flatus or BM yet. Tender, but pain controlled with IV dilaudid. O: Alert Afebrile VSS No increased WOB Abdomen: soft, mildly distended, appropriately tender to palpation. Incision sites are cdi. +BS Plan: Transition to oral pain meds. Likely advance diet tomorrow. Discussed getting oob as much as possible today to promote healing and return of bowel function. 03/01/18 08:57 Objective: Vital Signs Temp Pulse Resp BP Pulse Ox 36.7 C 74 18 100/68 91 L 03/01/18 08:00 03/01/18 08:00 03/01/18 08:00 03/01/18 08:00 03/01/18 08:00 Laboratory Results 03/01/18 05:00 03/01/18 05:00 02/28/18 03/01/18 03/02/18 05:59 05:59 05:59 Intake Total 850 Output Total 200 Balance 650 ICD10 Worksheet Patient Problems: Problems Problem Status Onset Congestive cardiac failure Acute Hyponatremia Acute Hypotension Acute Mitral regurgitation, acute Acute Osteoarthritis of right hip Acute Paroxysmal a-fib Acute Postoperative anemia due to acute blood loss Acute S/P ablation of atrial fibrillation Acute S/P mitral valve repair Acute Secondary tricuspid valve regurgitation Acute Status post tricuspid valve repair Acute Dyslipidemia Chronic Hypothyroidism Chronic
--- NOTE | 2018-03-01 10:49 | PDMN ---
Medical Necessity Medical necessity: MCG: S 250 small intestine resection 4-5 days [facility] INPT only - Lap assist. sm. bowel resection
[2018-03-01] MEDS: OXYCODONE/APAP 5/325 TAB PO PRN ×2 (11:59→16:40)
--- NOTE | 2018-03-01 15:02 | ASMTCASEMG ---
Living Arrangements What is your living Answers: With Spouse arrangement? Who do you live with? Type Of Residence What kind of residence do Answers: House you live in? Discharge Plan Comments Coordination Status Comments Notes: CM spoke to BREEZY Calderon regarding d/c POC. Pt is a 77 y/o female admitted for a small bowel obstruction. Pt had surgery w/ Dr. Ward. Pt will most likely d/c without any needs. No therapies ordered at this time. CM available for changes. Plan: Independent Date Signed: 03/01/2018 03:02 PM Electronically Signed By:BERT Burger
[2018-03-01] MEDS ORDERED: ALPRAZolam 0.5 MG TAB PO PRN (16:31)
[2018-03-01] MEDS: ONDANSETRON 4 MG/2 ML VIAL IVP PRN (20:30)
[2018-03-01] MEDS: METOPROLOL TARTRATE 25 MG TAB PO SCH (20:30)
[2018-03-02] MEDS: LEVOTHYROXINE 50 MCG TAB PO SCH (05:12)
[2018-03-02] MEDS ORDERED: MAGNESIUM HYDROXIDE 30 ML UDCUP PO PRN (08:23)
[2018-03-02] MEDS ORDERED: POLYETHYLENE GLYCOL 3350 17 GM PKT PO PRN (08:23)
[2018-03-02] MEDS ORDERED: LACTULOSE 20 GM/30 ML UDCUP PO PRN (08:23)
[2018-03-02] MEDS ORDERED: BISACODYL 10 MG SUPP PR PRN (08:23)
[2018-03-02] MEDS: ASPIRIN EC 81 MG TAB PO SCH (08:33)
[2018-03-02] MEDS: ENOXAPARIN 40 MG/0.4 ML SYR SC SCH (08:33)
[2018-03-02] MEDS: CALCIUM CARBONATE 500 MG TAB PO SCH (08:33)
[2018-03-02] MEDS: MULTIVITAMINS 1 EACH TAB PO SCH (08:33)
[2018-03-02] MEDS: DOCUSATE SODIUM 100 MG CAP PO SCH ×2 (08:33→20:40)
[2018-03-02] MEDS: METOPROLOL TARTRATE 25 MG TAB PO SCH ×2 (08:33→20:42)
[2018-03-02] MEDS: SENNOSIDES/DOCUSATE SODIUM TAB PO SCH ×2 (09:21→20:41)
--- NOTE | 2018-03-02 10:22 | SOAPPROG ---
SOAP Progress Note Assessment/Plan: Assessment: 77 y/o F s/p lap small bowel resection for ileal strictures POD#2 S: Doing well. Tolerating clears, although did have some nausea yesterday. Feels she may have drank too much, does get this feeling normally when she takes in too many liquids. Passed flatus last night, still no BM. Feeling bloated. Pain controlled on oral pain meds. Did have some oozing from her incisions this morning. Gauze dressings over incisions. O: Alert Afebrile VSS No increased WOB Abdomen: soft, mildly distended, appropriately tender to palpation. Incision sites with some blood. Gauze dressings over incisions. +BS Plan: Advance to light diet. Discussed taking it slow with eating solid food and stopping if she gets nauseous. Continue to get oob and walk. Pt seen with Dr. Aguilar. 03/02/18 10:18 Objective: Vital Signs Temp Pulse Resp BP Pulse Ox 36.7 C 72 18 108/63 96 03/02/18 07:11 03/02/18 07:11 03/02/18 07:11 03/02/18 07:11 03/02/18 07:11 Laboratory Results 03/01/18 05:00 03/01/18 05:00 03/01/18 03/02/18 03/03/18 05:59 05:59 05:59 Intake Total 850 2940 Output Total 200 200 Balance 650 2740 ICD10 Worksheet Patient Problems: Problems Problem Status Onset Congestive cardiac failure Acute Hyponatremia Acute Hypotension Acute Mitral regurgitation, acute Acute Osteoarthritis of right hip Acute Paroxysmal a-fib Acute Postoperative anemia due to acute blood loss Acute S/P ablation of atrial fibrillation Acute S/P mitral valve repair Acute Secondary tricuspid valve regurgitation Acute Status post tricuspid valve repair Acute Dyslipidemia Chronic Hypothyroidism Chronic
--- NOTE | 2018-03-02 10:32 | POSTANESTH ---
Post Anesthetic Evaluation Cardiovascular Status: Normal, Stable Respiratory Status: Normal, Stable Level of Consciousness/Mental Status: Can Participate in Eval Pain Control: Adequate, Prn Tx Ordered Nausea/Vomiting Control: Adequate, Prn Tx Ordered Complications Possibly Related to Anesthesia: None Noted
[2018-03-02] MEDS: ONDANSETRON 4 MG/2 ML VIAL IVP PRN (12:28)
--- NOTE | 2018-03-02 14:52 | ASMTCMCOM ---
CM Note CM Note Notes: Chart reviewed. Patient s/p colectomy. No therapies ordered. Per Nursing may have no needs. Plan: Likely home with no needs. Date Signed: 03/02/2018 02:52 PM Electronically Signed By:Karolina Angeles RN
[2018-03-02 17:19] LABS: PLATELET COUNT 256 10^3/uL (150-400)
[2018-03-02] MEDS ORDERED: ALPRAZolam 0.25 MG TAB PO PRN (21:00)
[2018-03-03] MEDS: LEVOTHYROXINE 50 MCG TAB PO SCH (05:18)
[2018-03-03] MEDS: MULTIVITAMINS 1 EACH TAB PO SCH (08:21)
[2018-03-03] MEDS: CALCIUM CARBONATE 500 MG TAB PO SCH (08:21)
[2018-03-03] MEDS: ASPIRIN EC 81 MG TAB PO SCH (08:21)
[2018-03-03] MEDS: METOPROLOL TARTRATE 25 MG TAB PO SCH (08:21)
[2018-03-03 08:23] VITALS: BP 119/74
[2018-03-03] MEDS: ENOXAPARIN 40 MG/0.4 ML SYR SC SCH (08:23)
[2018-03-03] MEDS: SENNOSIDES/DOCUSATE SODIUM TAB PO SCH (08:27)
[2018-03-03] MEDS: DOCUSATE SODIUM 100 MG CAP PO SCH (08:34)
[2018-03-03] MEDS ORDERED: ATORVASTATIN CALCIUM 10 MG TAB PO SCH (09:00)
--- NOTE | 2018-03-03 10:18 | SOAPPROG ---
SOAP Progress Note Assessment/Plan: Assessment: 77 y/o F s/p lap small bowel resection for ileal strictures POD#2 S: Doing well. Tolerating clears, although did have some nausea yesterday. Feels she may have drank too much, does get this feeling normally when she takes in too many liquids. Passed flatus last night, still no BM. Feeling bloated. Pain controlled on oral pain meds. Did have some oozing from her incisions this morning. Gauze dressings over incisions. O: Alert Afebrile VSS No increased WOB Abdomen: soft, mildly distended, appropriately tender to palpation. Incision sites with some blood. Gauze dressings over incisions. +BS Plan: Advance to light diet. Discussed taking it slow with eating solid food and stopping if she gets nauseous. Continue to get oob and walk. Pt seen with Dr. Aguilar. 03/02/18 10:18 03/03/18 10:15 Continuing to improve. Did have a liquid BM last night that had bright red blood. No BM or bloody discharge this am. H&H stable, and actually improved from 2 days ago. Abdomen is soft, still slightly distended, normoactive bowel sounds. Tolerating light diet, but does not have much of an appetite. Plan to see how the day goes, possibly discharge home later today. Path report consistent with Crohn's. Will consult GI. Objective: Vital Signs Temp Pulse Resp BP Pulse Ox 36.7 C 72 12 119/74 95 03/03/18 08:00 03/03/18 08:21 03/03/18 08:00 03/03/18 08:21 03/03/18 08:00 Laboratory Results 03/02/18 16:40 03/01/18 05:00 03/02/18 03/03/18 03/04/18 05:59 05:59 05:59 Intake Total 2940 250 Output Total 200 400 Balance 2740 -150 ICD10 Worksheet Patient Problems: Problems Problem Status Onset Congestive cardiac failure Acute Hyponatremia Acute Hypotension Acute Mitral regurgitation, acute Acute Osteoarthritis of right hip Acute Paroxysmal a-fib Acute Postoperative anemia due to acute blood loss Acute S/P ablation of atrial fibrillation Acute S/P mitral valve repair Acute Secondary tricuspid valve regurgitation Acute Status post tricuspid valve repair Acute Dyslipidemia Chronic Hypothyroidism Chronic
--- NOTE | 2018-03-03 14:53 | ASMTLACE ---
LARRYE Length of stay for Answers: 3 days current admission Acuity / Level of Answers: Yes Care: Did the patient have an inpatient admission? Comorbidities - select Answers: Congestive heart failure all that apply Coronary Artery Disease Other Notes: HTN # of Emergency department Answers: 1-2 visits in the last 6 months Score: 12 Date Signed: 03/03/2018 02:52 PM Electronically Signed By:Karolina Angeles RN
--- NOTE | 2018-03-03 14:56 | ASMTCMCOM ---
CM Note CM Note Notes: patient seen by surgery and medically cleared for discharge to home with out needs. CM available should needs arise. Plan: Discharge to home with family support. Date Signed: 03/03/2018 02:55 PM Electronically Signed By:Karolina Angeles RN
[2018-03-03] MEDS ORDERED: ALENDRONATE SODIUM 70 MG TAB PO SCH (16:31)
--- NOTE | 2018-03-03 17:58 | GCON ---
[f rep st] CONSULTATION REFERRING PHYSICIAN: Carlos Ward MD CHIEF COMPLAINT: [id number]-uptw-nwmi-old woman with Crohn's disease. HISTORY OF PRESENT ILLNESS: I have been asked to see this very pleasant 77-year -old woman in consultation by Dr. Carlos Ward for evaluation of Crohn disease. Patient has undergone evaluation as an outpatient for episodes of intermittent bowel obstruction. She was having symptoms of belching, bloating, flatulence. She has undergone evaluation with imaging. She had a small bowel follow through that showed a stricture suggestive of Crohn disease. She also had a CT enterography that showed active inflammation of the distal ilium. Patient was also having some symptoms of constipation. She Prometheus testing that was suggestive of Crohn disease. She did undergo a colonoscopy with intubation of the terminal ilium without any evidence of active inflammation. She did undergo Agile capsule study. However, the Agile capsule did not pass and she subsequently was referred to Surgery for further evaluation of small bowel stricture causing obstructive symptoms. She underwent surgery on 03/01. She underwent laparoscopic-assisted small bowel resection. She was found to have a small bowel stricture. Surgical specimen revealed a segment of small bowel with focal fissuring and ulceration and stricture consistent with Crohn disease. She also had evidence of inflammatory pseudopolyp. She had 5 reactive lymph nodes associated with the surgical resection. The patient is now postop. Asked to see patient for a diagnosis of Crohn disease. PAST MEDICAL HISTORY: Remarkable for hypertension, chronic constipation, history of chronic dyspepsia, hypothyroidism, previous total abdominal hysterectomy, cholecystectomy, appendectomy, mitral valve repair, right hip replacement, coronary artery disease, and hypercholesterolemia. MEDICATIONS: Prior to admission include d alprazolam, aspirin, atorvastatin, Centrum, iron, levothyroxine, metoprolol, and Tums. ALLERGIES: She has no known drug allergies. FAMILY HISTORY: Noncontributory as it pertains to chief complaint. SOCIAL HISTORY: Nonsmoker, nondrinker. REVIEW OF SYSTEMS: Negative 10 systems other than mentioned in HPI. PHYSICAL EXAM: VITAL SIGNS: 119/74, heart rate 72, respiratory rate 12, 95% on room air, 36.7. GENERAL: Very pleasant woman in no acute distress. HEENT: Normocephalic, atraumatic. EOMI. NECK: Supple. No cervical adenopathy. Mucous membranes moist. LUNGS: Clear. CARDIAC: Normal S1, S2. No murmur. ABDOMEN: Soft, benign, small incisions in the abdomen consistent with recent laparoscopic cholecystectomy. EXTREMITIES: Without clubbing, cyanosis, edema. NEURO: Nonfocal. SKIN: Warm, dry, intact. PSYCH: Alert and oriented x3 with normal affect. LABORATORY DATA: Hemoglobin 11.3 with hematocrit 33.8, MCV of 92.9, platelets of 256. Serum Chemistry: Serum sodium 138, potassium 4.4, chloride 106, CO2 was 24, BUN of 10, creatinine 0.7. IMPRESSION: A 77-year-old woman status post small bowel resection for Crohn's of the small bowel. RECOMMENDATIONS: 1. Postop care per Dr. Ward. 2. Would not start any particular therapy at this time. 3. Would recommend followup office visit in 6-8 weeks' time. 4. Consider initiation on Pentasa 1 g q.i.d. 5. Patient will follow up with us in the office. Please call with any further questions. Thank you for allowing me to participate in the care of this patient. /[id number]/MODL [email or web address]
--- NOTE | 2018-03-12 16:19 | GOP ---
[f rep st] OPERATIVE REPORT DATE OF OPERATION: 02/28/2018 SURGEON: Carlos Ward MD PREOPERATIVE DIAGNOSIS: Small bowel ileal strictures. POSTOPERATIVE DIAGNOSIS: Small bowel ileal strictures, probable Crohn's. PROCEDURE PERFORMED: Laparoscopy with laparotomy and small-bowel resection. FINDINGS: The patient was found to have 2 areas of stricture in the terminal ileum approximately 8-1 2 inches proximal to the ileocecal valve. No other evidence of Crohn's throughout the abdomen. No o ther etiology for these strictures, but the bowel presented with fat wrapping as well as strictured s egments. DESCRIPTION OF PROCEDURE: The patient was taken to the operating room where she received satisfactor y general endotracheal anesthesia by Dr. Augustin. Placed in the supine position and prepped and drape d in the usual sterile fashion. A periumbilical incision was made. A Veress needle was inserted. P neumoperitoneum was established. Trocar was introduced. Laparoscope introduced. Good visualization was obtained. Two other trocars were placed in the lower abdomen under direct vision. The bowel was evaluated. The area of stricture was easily identified. It was free enough. The right colon was m obilized by dividing the lateral peritoneal reflection as well as the terminal ileum. The appendix h ad already been removed. Hemostasis was assured. A small short incision was then made and carried t hrough the linea alba. The abdomen was entered. Hemostasis was assured. The dissection of small ruiz wel and right colon that had been previously mobilized was brought up through this incision. The bow el was divided proximally with a JAEL stapler and distally as well. The mesentery between the two was divided with the Harmonic Scalpel. A ovwr-nr-jitz anastomosis was then made to the terminal ileum. This was done with the insertion of the JAEL stapler, and a cross application of the stapler to close off the suture line. This created a good 3 fingerbreadth anastomosis. The suture line was reinforc ed with interrupted 3-0 Vicryl sutures. The mesentery was closed with a running 3-0 Vicryl suture, a nd the bowel was returned into the abdomen through the small incision which was then closed with 0 PD S for the fascia, 3-0 Vicryl for the subcutaneous tissue, and 4-0 Monocryl subcuticular stitch for th e skin. The wound was infiltrated with 0.5% Marcaine. Blood loss was negligible. No complications. The remaining trocar sites were also closed with 4-0 Monocryl subcuticular sutures. She tolerated the procedure well, was taken to the recovery room in a good condition. Blood loss was negligible. /[id number]/MODL
== END 2018-03-03 16:08 | disposition home or self-care (01) | DRG 346 ==
LOC: F3N 14:21 → F3E 14:55
PROVIDERS: ADMIT Surgery; ATTEND Surgery
PROC: 07BB0ZX Excision of Mesenteric Lymphatic, Open Approach, Diagnostic (ICD-10-PCS; principal; 2018-02-28 16:00)
PROC: 0DJD4ZZ Inspection of Lower Intestinal Tract, Percutaneous Endoscopic Approach (ICD-10-PCS; principal; 2018-02-28 16:00)
PROC: 0DBB0ZX Excision of Ileum, Open Approach, Diagnostic (ICD-10-PCS; principal; 2018-02-28 16:00)
DX: K50.00 Crohn's disease of small intestine without complications (principal); I10 Essential (primary) hypertension; I25.10 Atherosclerotic heart disease of native coronary artery without angina pectoris; I50.9 Heart failure, unspecified; E78.5 Hyperlipidemia, unspecified; E03.9 Hypothyroidism, unspecified; Z96.641 Presence of right artificial hip joint; Z53.31 Laparoscopic surgical procedure converted to open procedure
CPT/HCPCS: J0694; J1100; J1170; J1650; J2250; J2405; J2704; J3010

== ENCOUNTER → 2018-04-19 | Outpatient (CLI) | payer OTHER | LOC: FIMAGING 08:04 | PROVIDERS: ATTEND Surgery | DX: K21.9 Gastro-esophageal reflux disease without esophagitis (principal) ==

== ENCOUNTER → 2018-11-13 | Outpatient (CLI) | payer OTHER ==
[~2018-11-13] MED LIST changes: +GADOBUTROL 10 ML VIAL IVP ONE; +GLUCAGON HCL 0.3 MG in SYRINGE 0.3 ML IVP ONE; -IOPAMIDOL (ISOVUE-300) 100 ML BTL ONE
== END ==
LOC: FIMAGING 09:29
PROVIDERS: ATTEND Internal Medicine Gastroenterology
DX: K50.019 Crohn's disease of small intestine with unspecified complications (principal); Z90.49 Acquired absence of other specified parts of digestive tract
CPT/HCPCS: 72196; 74182; A9585; J1610; 82565-PO

== ENCOUNTER → 2019-02-06 | Outpatient (CLI) | payer OTHER | LOC: FIMAGING 14:02 | PROVIDERS: ATTEND Internal Medicine | DX: Z12.31 Encounter for screening mammogram for malignant neoplasm of breast (principal); Z80.3 Family history of malignant neoplasm of breast ==